=== PATIENT | male | born 1975 | race Caucasian/White ===

== ENCOUNTER 2019-08-09 17:03 | Emergency (ER) | payer OTHER, SELFPAY ==
[~2019-08-09 17:03] MED LIST: Sodium Chloride Irrig Solution 250 ML BOT ONE
[2019-08-09] MEDS ORDERED: Lidocaine 1% 20 ML MDV ONE ×2 (18:01→18:16)
[2019-08-09] MEDS ORDERED: Adacel (T-DAP) 0.5 ML SYRINGE ONE (18:16)
== END 2019-08-09 19:15 | disposition home or self-care (01) ==
LOC: MADERS 17:03
DX: S61.210A Laceration without foreign body of right index finger without damage to nail, initial encounter (principal); W45.8XXA Other foreign body or object entering through skin, initial encounter
CPT/HCPCS: 12002; 90471; 90715; J2001